=== PATIENT | male | born 1970 | race Caucasian/White ===

== ENCOUNTER 2017-05-17 10:29 | Emergency (ER) | payer OTHER, MEDICAID ==
[~2017-05-17] VITALS: Ht 165.1 cm; Wt 99.8 kg
[~2017-05-17 10:29] MED LIST: AZITHROMYCIN 2250 MG PO; KEFLEX500 MG PO; LEVAQUIN 500 M500 M2 PO; MEDROLDOSEPACK PO; TESSALON PERLE100 MG PO
[2017-05-17] MEDS ORDERED: VENTOLIN HFA 1818 GM INH (11:22)
[2017-05-17] MEDS ORDERED: TESSALON PERLE100 MG PO (11:22)
[2017-05-17 11:36] VITALS: BP 101/75
== END 2017-05-17 11:36 | disposition home or self-care (01) ==
LOC: M.ERS 10:29
DX: B34.9 Viral infection, unspecified (principal)

== ENCOUNTER 2017-11-09 14:30 | Emergency (ER) | payer OTHER ==
[~2017-11-09] VITALS: Ht 165.1 cm; Wt 99.8 kg
[~2017-11-09 14:30] MED LIST changes: +VENTOLIN HFA 1818 GM INH
[2017-11-09 14:40] VITALS: BP 139/62
[2017-11-09] MEDS ORDERED: ERYTHROMYCIN E3.5 G3 OPHTHALMIC (14:55)
== END 2017-11-09 15:04 | disposition home or self-care (01) ==
LOC: M.ERS 14:30
DX: H10.89 Other conjunctivitis (principal)

== ENCOUNTER 2018-05-14 16:13 | Emergency (ER) | payer OTHER ==
[~2018-05-14] VITALS: Ht 165.1 cm; Wt 88.5 kg
[~2018-05-14 16:13] MED LIST changes: +ERYTHROMYCIN E3.5 G3 OPHTHALMIC
[2018-05-14 17:16] LABS: INFLUENZA A ANTIGEN None Detected (None Detect); INFLUENZA B ANTIGEN None Detected (None Detect)
[2018-05-14] MEDS ORDERED: AUGMENTIN 875-1 EACH PO (17:20)
[2018-05-14 17:29] VITALS: BP 131/87
== END 2018-05-14 17:28 | disposition home or self-care (01) ==
LOC: M.ERS 16:13
PROVIDERS: Nurse Practitioner Family
DX: J06.9 Acute upper respiratory infection, unspecified (principal)